=== PATIENT | female | born 1980 | race Caucasian/White ===

== ENCOUNTER 2016-11-14 14:04 | Emergency (ER) | payer MEDICAID ==
[2016-11-14 14:08] VITALS: BP 113/73
--- NOTE | 2016-11-14 14:21 | ED Physician Documentation ---
PD HPI HEENT - Stated complaint Stated Complaint: TOOTH PX - Chief complaint Chief Complaint: Heent - History obtained from History obtained from: Patient - History of Present Illness Timing - onset: How many days ago (2) Timing - duration: Days (2) Timing - details: Gradual onset, Still present Location: Tooth Improves: Medication Associated symptoms: Facial swelling. No: Fever, Congestion, Rhinorrhea, Headache, Cough Similar symptoms before: Diagnosis (bad tooth) Recently seen: Not recently seen - Additional information Additional information: 36-year-old female has a tooth in the left lower jaw that has been bothering her for about a week over the past 2 days it is become extremely painful and is not improved with use of ibuprofen and she is not sleeping at night. Review of Systems Constitutional: denies: Fever Eyes: denies: Decreased vision Ears: denies: Ear pain Nose: denies: Congestion Throat: reports: Dental pain / toothache. 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: None : None HEENT: None Psych: Anxiety Musculoskeletal: Fibromyalgia Derm: None - Past Surgical History Past Surgical History: Yes General: Cholecystectomy /TRANSPLANT IMMUNOLOGIST: Dilation and currettage - Present Medications Home Medications: Ambulatory Orders Medication Instructions Recorded Confirmed Amoxicillin 500 mg PO TID #21 capsule 11/14/16 HYDROcod/ACETAM 5/325 [[place] 5/325] 1 - 2 ea PO Q6H PRN #15 tablet 11/14/16 - Allergies Allergies/Adverse Reactions: Allergies Allergy/AdvReac Type Severity Reaction Status Date / Time codeine AdvReac Respiratory Verified 08/17/15 14:00 - Social History Does the pt smoke?: Yes Smoking Status: Current every day smoker Does the pt drink ETOH?: No Does the pt have substance abuse?: Yes - Immunizations Immunizations are current?: Yes PD ED PE NORMAL - Vitals Vital signs reviewed: Yes (normal ) - General General: No acute distress, Well developed/nourished - HEENT HEENT: Atraumatic, PERRL, EOMI, Other (#21 shows interdental decay and the tooth is tender to palpation and there is no gum swelling. There is tenderness along the mandible ) - Neck Neck: Supple, no meningeal sign, No bony TTP - Cardiac Cardiac: RRR, No murmur - Respiratory Respiratory: No respiratory distress, Clear bilaterally - Derm Derm: Normal color, Warm and dry, No rash - Extremities Extremities: No deformity, No edema - Neuro Neuro: Alert and oriented X 3, creative technologist 2-12 intact, No motor deficit, No sensory deficit, Normal speech - Psych Psych: Normal mood, Normal affect PD ED PE EXPANDED - HEENT HEENT Visual: 1 - deformity, tenderness Results - Vitals Vitals: Vital Signs - 24 hr 11/14/16 14:07 Temperature 36.6 C Heart Rate 82 Respiratory 16 Rate Blood Pressure 113/73 O2 Saturation 100 Oxygen O2 Source Room air PD MEDICAL DECISION MAKING - ED course Complexity details: considered differential, d/w patient ED course: 36 y/o female with a bad tooth is placed on amoxil and we will give her a limited supply of some pain medication. Departure - Departure Disposition: 01 Home, Self Care Clinical Impression: Dental infection Condition: Stable Instructions: ED Tooth Pain Follow-Up: Miguelina Nix ARNP [Primary Care Provider] - Prescriptions: Amoxicillin 500 mg PO TID #21 capsule HYDROcod/ACETAM 5/325 [[place] 5/325] 1 - 2 ea PO Q6H PRN #15 tablet PRN Reason: Pain
== END 2016-11-14 14:34 | disposition home or self-care (01) ==
LOC: ED 14:04
DX: K04.7 Periapical abscess without sinus (principal); K02.9 Dental caries, unspecified; F17.200 Nicotine dependence, unspecified, uncomplicated
CPT/HCPCS: 99283

== ENCOUNTER 2016-12-03 10:57 | Emergency (ER) | payer MEDICAID ==
[2016-12-03 11:06] VITALS: BP 137/87
--- NOTE | 2016-12-03 12:50 | ED Physician Documentation ---
PD HPI HEENT - Stated complaint Stated Complaint: DENTAL PAIN - Chief complaint Chief Complaint: Heent - History obtained from History obtained from: Patient - History of Present Illness Timing - onset: Other (6 days of pain from a right mandibular premolar. 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 ZOOLOGICAL MUSEUM: None : None HEENT: None Psych: Anxiety Musculoskeletal: Fibromyalgia Derm: None - Past Surgical History Past Surgical History: Yes General: Cholecystectomy /CURATOR ZOOLOGICAL MUSEUM: Dilation and currettage - Present Medications Home Medications: Ambulatory Orders Medication Instructions Recorded Confirmed Amoxicillin 500 mg PO TID #30 capsule 12/03/16 HYDROcod/ACETAM 5/325 [[place] 5/325] 1 - 2 ea PO Q6H PRN #15 tablet 12/03/16 Ibuprofen [Motrin] 800 mg PO Q8H PRN #30 tablet 12/03/16 - Allergies Allergies/Adverse Reactions: Allergies Allergy/AdvReac Type Severity Reaction Status Date / Time codeine AdvReac Respiratory Verified 08/17/15 14:00 - Social History Does the pt smoke?: Yes Smoking Status: Current every day smoker Does the pt drink ETOH?: No Does the pt have substance abuse?: Yes - Immunizations Immunizations are current?: Yes PD ED PE NORMAL - Vitals Vital signs reviewed: Yes - General General: Alert and oriented X 3, No acute distress - HEENT HEENT: Other (She has a lot of fillings. There is a large filling in a right mandibular molar, and lateral to that all the enamel is gone. It is tender. There is no facial swelling, sublingual edema, or trismus.) - Neck Neck: Supple, no meningeal sign, No bony TTP - Neuro Neuro: Alert and oriented X 3, Normal speech - Psych Psych: Normal mood, Normal affect Results - Vitals Vitals: Vital Signs - 24 hr 12/03/16 11:02 Temperature 36.7 C Heart Rate 75 Respiratory 16 Rate Blood Pressure 137/87 H O2 Saturation 100 Oxygen O2 Source Room air PD MEDICAL DECISION MAKING - ED course ED course: The [place] prescription monitoring program was queried with regard to this patient. No concerning findings were found. Departure - Departure Disposition: 01 Home, Self Care Clinical Impression: Dental infection, Dental abscess Condition: Good Record reviewed to determine appropriate education?: Yes Instructions: ED Abscess Dental Prescriptions: Amoxicillin 500 mg PO TID #30 capsule Ibuprofen [Motrin] 800 mg PO Q8H PRN #30 tablet PRN Reason: PAIN &/OR FEVER HYDROcod/ACETAM 5/325 [[place] 5/325] 1 - 2 ea PO Q6H PRN #15 tablet PRN Reason: Pain Comments: It is very important that she follow-up with a dentist. When it comes to dental problems like yours, the emergency department can only offer a short- term solution to your long-term problem. A couple of low cost options for dental care include: [facility] in [place], calls [phone] for an appointment Or [facility] in [place], call [phone] for an appointment. Do not drink or drive while taking narcotic pain medication. Note that many narcotic pain relievers also contain Tylenol/acetaminophen. Please ensure that your total dose of acetaminophen from all sources does not exceed 3 g (3000 mg) per day. You may get constipated while on this medication. Take a stool softener such as Colace twice a day while you are on it. Also add an pbor-ihh-oohhhup laxative such as senna or MiraLAX on any day that you do not have a bowel movement. If you received a narcotic pain medication or sedative while in the emergency department, do not drive for the next 24 hours.
== END 2016-12-03 12:52 | disposition home or self-care (01) ==
LOC: ED 10:57
DX: K04.7 Periapical abscess without sinus (principal); F17.200 Nicotine dependence, unspecified, uncomplicated
CPT/HCPCS: 99283

== ENCOUNTER 2017-03-03 10:52 | Emergency (ER) | payer MEDICAID ==
[2017-03-03 10:56] VITALS: BP 127/72
[2017-03-03] MEDS ORDERED: DEXAMETHASONE 10 MG/ML VIAL PO STA (12:12)
[2017-03-03] MEDS ORDERED: DEXAMETHASONE 10 MG/ML VIAL ONE (12:20)
--- NOTE | 2017-03-03 12:38 | ED Physician Documentation ---
PD HPI BACK PAIN - Stated complaint Stated Complaint: LOWER BACK PX/INJ - Chief complaint Chief Complaint: Back Pain - History obtained from History obtained from: Patient - History of Present Illness Timing - onset: How many days ago (5) Timing - duration: Days (5) Timing - details: Gradual onset, Still present Location: Lower Quality: Pain, Spasm, Sharp Associated symptoms: No: Fever, Weakness, Numbness, Incontinent of urine, Unable to urinate, Hematuria, Incontinent of stool Improves with: Rest, Position, Other (heat) Worsened by: Movement Contributing factors: Twisting Similar symptoms before: Has not had sx before Recently seen: Not recently seen - Additional information Additional information: 36-year-old female was going down some stairs she missed a step and mauricio her back falling with her arms stretched out behind her and she was able to catch herself with her arms. She did not initially have back pain but later on that day she began to develop this back pain and the pain has become worse and now it is intolerable. She has a lot of stiffness in her back. Review of Systems Constitutional: denies: Fever Eyes: denies: Decreased vision Ears: denies: Ear pain Nose: denies: Congestion Throat: denies: Sore throat Cardiac: denies: Chest pain / pressure, Palpitations Respiratory: denies: Dyspnea, Cough GI: denies: Abdominal Pain, Nausea, Vomiting : denies: Dysuria, Frequency Skin: denies: Rash Musculoskeletal: reports: Back pain. 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 : None HEENT: None Psych: Anxiety Musculoskeletal: Fibromyalgia Derm: None - Past Surgical History Past Surgical History: Yes General: Cholecystectomy /ROOF PANEL HANGER: Dilation and currettage - Present Medications Home Medications: Ambulatory Orders Medication Instructions Recorded Confirmed Ibuprofen [Motrin] 800 mg PO Q8H PRN #30 tablet 12/03/16 03/03/17 HYDROcod/ACETAM 5/325 [[place] 5/325] 1 - 2 ea PO Q6H PRN #15 tablet 03/03/17 Methocarbamol [Robaxin] 1 tab PO BID 03/03/17 03/03/17 - Allergies Allergies/Adverse Reactions: Allergies Allergy/AdvReac Type Severity Reaction Status Date / Time codeine AdvReac Respiratory Verified 03/03/17 10:56 - Social History Does the pt smoke?: Yes Smoking Status: Current every day smoker Does the pt drink ETOH?: No Does the pt have substance abuse?: Yes Substance Use and Type: Marijuana - Immunizations Immunizations are current?: Yes - POLST Patient has POLST: No PD ED PE NORMAL - Vitals Vital signs reviewed: Yes (normal ) - General General: Alert and oriented X 3, No acute distress, Well developed/nourished - HEENT HEENT: Atraumatic, PERRL, EOMI - Neck Neck: Supple, no meningeal sign - Cardiac Cardiac: RRR, No murmur - Respiratory Respiratory: No respiratory distress, Clear bilaterally - Abdomen Abdomen: Soft, Non tender - Back Back: No CVA TTP, No spinal TTP, Other (There is a lidocaine patch to the lower lumbar area ) - Derm Derm: Normal color, Warm and dry, No rash - Extremities Extremities: No deformity, No edema - Neuro Neuro: No motor deficit, No sensory deficit - Psych Psych: Normal mood, Normal affect Results - Vitals Vitals: Vital Signs - 24 hr 03/03/17 10:53 Temperature 36.1 C L Heart Rate 73 Respiratory 16 Rate Blood Pressure 127/72 O2 Saturation 100 Oxygen O2 Source Room air PD MEDICAL DECISION MAKING - ED course Complexity details: reviewed old records, considered differential, d/w patient ED course: 36-year-old female with a jarring back injury has muscle spasm in her lower back and she has been using a heating pack on this and has had increased spasm and continues to have pain. Here in the emergency department the patient was given 10 mg of dexamethasone orally and we will give her a limited amount of pain medication. Departure - Departure Disposition: 01 Home, Self Care Clinical Impression: Back spasm Condition: Stable Instructions: ED Low Back Pain Injury Follow-Up: Miguelina Nix ARNP [Primary Care Provider] - Prescriptions: HYDROcod/ACETAM 5/325 [[place] 5/325] 1 - 2 ea PO Q6H PRN #15 tablet PRN Reason: Pain
== END 2017-03-03 12:48 | disposition home or self-care (01) ==
LOC: ED 10:52
DX: S39.92XA Unspecified injury of lower back, initial encounter (principal); W10.9XXA Fall (on) (from) unspecified stairs and steps, initial encounter; X50.9XXA Other and unspecified overexertion or strenuous movements or postures, initial encounter; Y92.009 Unspecified place in unspecified non-institutional (private) residence as the place of occurrence of the external cause; M54.5 Low back pain; F17.200 Nicotine dependence, unspecified, uncomplicated
CPT/HCPCS: 99283

== ENCOUNTER 2017-03-16 15:00 | Outpatient (CLI) | payer MEDICAID | END 2017-03-16 15:01 | disposition home or self-care (01) | LOC: LAB.R 15:00 | PROVIDERS: ATTEND Nurse Practitioner Family | DX: N39.0 Urinary tract infection, site not specified (principal) | CPT/HCPCS: 87086 ==

== ENCOUNTER 2017-03-17 10:51 | Outpatient (CLI) | payer MEDICAID ==
[2017-03-17 11:35] LABS: BASOPHILS # (AUTO) 0.1 10^3/uL (0.0-0.1); BASOPHILS % (AUTO) 0.6 %; EOSINOPHILS # (AUTO) 0.2 10^3/uL (0.0-0.7); EOSINOPHILS % (AUTO) 1.8 %; HCT - HEMATOCRIT 41.4 % (37.0-47.0); HGB - HEMOGLOBIN 14.1 g/dL (12.0-16.0); LYMPHOCYTES # (AUTO) 2.6 10^3/uL (1.5-3.5); LYMPHOCYTES % (AUTO) 24.3 %; MEAN CORPUSCULAR HEMOGLOBIN 32.3 pg (27.0-31.0); MEAN PLATELET VOLUME 7.8 fL (7.9-10.8); MONOCYTES # (AUTO) 0.7 10^3/uL (0.0-1.0); MONOCYTES % (AUTO) 6.5 %; NEUTROPHILS # (AUTO) 7.1 10^3/uL (1.5-6.6); NEUTROPHILS % (AUTO) 66.8 %; RED BLOOD COUNT 4.35 10^6/uL (4.20-5.40); RED CELL DISTRIBUTION WIDTH 12.5 % (12.0-15.0); UNCORRECTED WHITE BLOOD COUNT 10.6 x10^3/uL; WHITE BLOOD COUNT 10.6 x10^3/uL (4.8-10.8)
[2017-03-17 11:46] LABS: ALBUMIN/GLOBULIN RATIO 1.5 (1.0-2.2); BILIRUBIN,TOTAL 0.6 mg/dL (0.2-1.0); CALCIUM 9.3 mg/dL (8.5-10.3); CREATININE 0.7 mg/dL (0.4-1.0); POTASSIUM 3.9 mmol/L (3.5-5.0); TOTAL PROTEIN 7.9 g/dL (6.7-8.2)
== END 2017-03-17 10:52 | disposition home or self-care (01) ==
LOC: LAB 10:51
PROVIDERS: ATTEND Nurse Practitioner Family
DX: R10.13 Epigastric pain (principal)
CPT/HCPCS: 36415; 80053; 85025; 87338

== ENCOUNTER 2017-05-07 14:40 | Outpatient (CLI) | payer MEDICAID | END 2017-05-07 14:41 | disposition home or self-care (01) | LOC: LAB.R 14:40 | PROVIDERS: ATTEND Family Medicine | DX: N39.0 Urinary tract infection, site not specified (principal) | CPT/HCPCS: 87086 ==

== ENCOUNTER 2017-07-30 10:39 | Emergency (ER) | payer MEDICAID ==
[2017-07-30 12:47] LABS: BILIRUBIN,URINE NEGATIVE (NEGATIVE); GLUCOSE, URINE (UA) NEGATIVE (NEGATIVE); KETONES,URINE (UA) NEGATIVE (NEGATIVE); LEUKOCYTE ESTERASE, URINE NEGATIVE (NEGATIVE); NITRITE,URINE NEGATIVE (NEGATIVE); OCCULT BLOOD,URINE TRACE-INTA (NEGATIVE); PH,URINE 5.5 PH (5.0-7.5); PROTEIN,URINE NEGATIVE (NEGATIVE); UROBILINOGEN,URINE 0.2 (NORMAL) E.U./dL (NORMAL)
[2017-07-30 12:50] LABS: CLARITY,URINE CLEAR (CLEAR); HCG UR QUAL NEGATIVE
[2017-07-30] MEDS ORDERED: IBUPROFEN 400 MG TABLET PO STA (14:55)
[2017-07-30] MEDS ORDERED: ACETAMINOPHEN 325 MG TABLET PO STA (14:55)
--- NOTE | 2017-07-30 14:57 | ED Physician Documentation ---
History of Present Illness - Stated complaint Stated Complaint: LOWER ABD PX - Chief complaint Chief Complaint: Abd Pain - Additonal information Additional information: hx from pt 37 f to ED with 4 days of severe shapr pelvic pain no fever no NVD no vag bleed or dc s/p adina no other abd surgery Review of Systems Constitutional: denies: Fever GI: reports: Abdominal Pain. denies: Nausea, Vomiting, Diarrhea : denies: Discharge, Vaginal bleeding PD PAST MEDICAL HISTORY - Past Medical History Cardiovascular: None Respiratory: None Neuro: None Endocrine/Autoimmune: None GI: None MARINA PORTER: None : None HEENT: None Psych: Anxiety Musculoskeletal: Fibromyalgia Derm: None - Past Surgical History Past Surgical History: Yes General: Cholecystectomy /MARINA PORTER: Dilation and currettage - Present Medications Home Medications: Ambulatory Orders Medication Instructions Recorded Confirmed Ibuprofen [Motrin] 400 mg PO Q6H PRN #30 tablet 07/30/17 traMADol [Ultram] 50 mg PO Q6H PRN #6 tablet 07/30/17 - Allergies Allergies/Adverse Reactions: Allergies Allergy/AdvReac Type Severity Reaction Status Date / Time codeine AdvReac Respiratory Verified 07/30/17 10:48 - Social History Does the pt smoke?: Yes Smoking Status: Current every day smoker Does the pt drink ETOH?: No Does the pt have substance abuse?: Yes - Immunizations Immunizations are current?: Yes - POLST Patient has POLST: No PD ED PE NORMAL - Vitals Vital signs reviewed: Yes - Cardiac Cardiac: RRR - Respiratory Respiratory: No respiratory distress, Clear bilaterally - Abdomen Abdomen: Soft, Other (TTP very low abd , no mcburney pt pain) - Female 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), Other (small yellow thick dc, slight CMT, no beleeding, cx sent, no lesions) - Derm Derm: Normal color - Neuro Neuro: Alert and oriented X 3 Results - Vitals Vitals: Vital Signs - 24 hr 07/30/17 07/30/17 07/30/17 10:45 12:53 16:52 Temperature 37.0 C 37 C Heart Rate 73 63 86 Respiratory 16 16 16 Rate Blood Pressure 114/64 119/76 112/72 O2 Saturation 99 100 97 Oxygen O2 Source Room air - Labs Labs: Microbiology 07/30/17 15:24 Wet Prep - Final Genital - Vaginal Laboratory Tests 07/30/17 10:55 Urine Color YELLOW Urine Clarity CLEAR Urine pH 5.5 Ur Specific [place] 1.025 Urine Protein NEGATIVE Urine Glucose (UA) NEGATIVE Urine Ketones NEGATIVE Urine Occult Blood TRACE-INTA Urine Nitrite NEGATIVE Urine Bilirubin NEGATIVE Urine Urobilinogen 0.2 (NORMAL) Ur Leukocyte Esterase NEGATIVE Ur Microscopic Review NOT INDICATED Urine Culture Comments NOT INDICATED Urine HCG, Qual NEGATIVE - Rads (name of study) pelvic sono Radiology: See rad report (4 cm simple ovarian cyst, no FF or torsion) PD MEDICAL DECISION MAKING - ED course ED course: cervicitis on exam tx with rocephin and zmax cx pending and cyst on sono exam does not suggest appendicitis - lower and more midline Departure - Departure Disposition: 01 Home, Self Care Clinical Impression: Cervicitis Ovarian cyst Qualifiers: Laterality: right Qualified Code(s): N83.201 - Unspecified ovarian cyst, right side Condition: Good Instructions: ED Cyst Ovarian, ED VD Cervicitis Treated Follow-Up: Miguelina Nix ARNP [Primary Care Provider] - Stefany Grider DO [Provider Admit Priv/Credential] - Prescriptions: Ibuprofen [Motrin] 400 mg PO Q6H PRN #30 tablet PRN Reason: Pain traMADol [Ultram] 50 mg PO Q6H PRN #6 tablet PRN Reason: Severe Pain Comments: Your exam does not suggest appendicitis - the pain is lower and more in the middle than where your appendix should be. The pelvic exam suggests part of the pain might be a pelvic infection - cultures are pending but we have treated you with antibiotics already And the ultrasound showed a very large right ovarian cyst - it has not ruptured yet and has not compromised the blood flow to the ovary. Recommend motrin for mild to moderate pain and tramadol if needed for severe pain only (no driving as it may be sedating) Follow up with your PMD or MARINA PORTER for a recheck Return to the ER if worse
[2017-07-30] MEDS ORDERED: oxyCOD/ACETAMIN 5 MG/325 MG TABLET PO STA (16:09)
[2017-07-30] MEDS ORDERED: LIDOCAINE 1% 2 ML VIAL SUBQ ONE (16:23)
[2017-07-30] MEDS ORDERED: cefTRIAXone 250 MG VIAL IM STA (16:23)
[2017-07-30] MEDS ORDERED: AZITHROMYCIN 250 MG TABLET PO STA (16:24)
--- NOTE | 2017-07-30 17:12 | Ultrasound Report ---
PELVIS ULTRASOUND TRANSABDOMINAL AND TRANSVAGINAL: 07/30/2017 COMPARISON: None. INDICATION: Pelvic pain. TECHNIQUE: Sonographic evaluation of the pelvis was performed using transabdominal and endovaginal technique. FINDINGS: The uterus is retroverted. It has a normal appearance without masses. The cervix is grossly unremarkable. The endometrial stripe measures 4 mm. There is a 4.0 cm simple appearing right ovarian cyst. The ovaries have an otherwise normal appearance with normal appearing blood flow. There is no free fluid. IMPRESSION: SIMPLE APPEARING RIGHT OVARIAN CYST. OTHERWISE, NEGATIVE PELVIS ULTRASOUND. TD: 07/30/2017 17:10 [facility]
[2017-07-30 17:21] VITALS: BP 115/57
== END 2017-07-30 17:30 | disposition home or self-care (01) ==
LOC: ED 10:39
DX: N72 Inflammatory disease of cervix uteri (principal); N83.201 Unspecified ovarian cyst, right side; F17.200 Nicotine dependence, unspecified, uncomplicated
CPT/HCPCS: 76830; 76856; 81003; 81025; 87210; 87491; 87591; 93975; 96372; 99283; A9270; 81001; 87086

== ENCOUNTER 2017-08-19 19:42 | Emergency (ER) | payer MEDICAID ==
[2017-08-19 19:49] VITALS: BP 141/72
[2017-08-19 20:22] LABS: BILIRUBIN,URINE NEGATIVE (NEGATIVE); GLUCOSE, URINE (UA) NEGATIVE (NEGATIVE); KETONES,URINE (UA) NEGATIVE (NEGATIVE); LEUKOCYTE ESTERASE, URINE NEGATIVE (NEGATIVE); NITRITE,URINE NEGATIVE (NEGATIVE); OCCULT BLOOD,URINE TRACE-INTA (NEGATIVE); PROTEIN,URINE NEGATIVE (NEGATIVE); UROBILINOGEN,URINE 0.2 (NORMAL) E.U./dL (NORMAL)
[2017-08-19] MEDS ORDERED: HYDROcod/ACET 5/325 Prepack 4 PO STA (20:26)
[2017-08-19 20:27] LABS: CLARITY,URINE CLEAR (CLEAR); HCG UR QUAL NEGATIVE
--- NOTE | 2017-08-19 20:30 | ED Physician Documentation ---
PD HPI ABD PAIN - Stated complaint Stated Complaint: FEMALE - Chief complaint Chief Complaint: Abd Pain - History obtained from History obtained from: Patient - History of Present Illness Timing - onset: Other (37-year-old woman with Nexplanon in place with recurrent ovarian cysts, had right pelvic pain similar to previous ovarian cysts starting yesterday. There is no bleeding, discharge, fever, nausea. She went to the women's clinic since her last visit here, noting last visit here she found a 4 cm right ovarian cyst. She was given hydroxyzine to help her sleep. 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 : None HEENT: None Psych: Anxiety Musculoskeletal: Fibromyalgia Derm: None Other Past Medical History: ovarian cyst - Past Surgical History Past Surgical History: Yes General: Cholecystectomy /GREEN BUILDING ENGINEER: Dilation and currettage - Present Medications Home Medications: Ambulatory Orders Medication Instructions Recorded Confirmed Ibuprofen [Motrin] 400 mg PO Q6H PRN #30 tablet 07/30/17 HYDROcod/ACETAM 5/325 [[place] 5/325] 1 - 2 ea PO Q6H PRN #15 tablet 08/19/17 - Allergies Allergies/Adverse Reactions: Allergies Allergy/AdvReac Type Severity Reaction Status Date / Time codeine AdvReac Respiratory Verified 08/19/17 19:48 - Social History Does the pt smoke?: Yes Smoking Status: Current every day smoker Does the pt drink ETOH?: No Does the pt have substance abuse?: Yes - Immunizations Immunizations are current?: Yes - POLST Patient has POLST: No PD ED PE NORMAL - Vitals Vital signs reviewed: Yes - General General: Alert and oriented X 3, No acute distress - Abdomen Abdomen: Normal bowel sounds, Soft, Non tender - Neuro Neuro: Alert and oriented X 3, Normal speech - Psych Psych: Normal mood, Normal affect Results - Vitals Vitals: Vital Signs - 24 hr 08/19/17 19:46 Temperature 36.9 C Heart Rate 91 Respiratory 16 Rate Blood Pressure 141/72 H O2 Saturation 100 Oxygen O2 Source Room air - Labs Labs: Laboratory Tests 08/19/17 20:11 Urine Color YELLOW Urine Clarity CLEAR Urine pH 6.0 Ur Specific [place] >=1.030 H Urine Protein NEGATIVE Urine Glucose (UA) NEGATIVE Urine Ketones NEGATIVE Urine Occult Blood TRACE-INTA Urine Nitrite NEGATIVE Urine Bilirubin NEGATIVE Urine Urobilinogen 0.2 (NORMAL) Ur Leukocyte Esterase NEGATIVE Ur Microscopic Review NOT INDICATED Urine HCG, Qual NEGATIVE Departure - Departure Disposition: Home, Self Care Clinical Impression: Ovarian cyst Qualifiers: Laterality: right Qualified Code(s): N83.201 - Unspecified ovarian cyst, right side Condition: Good Record reviewed to determine appropriate education?: Yes Instructions: ED Pelvic Pain [facility] Follow-Up: [facility] [Provider Group] Prescriptions: HYDROcod/ACETAM 5/325 [[place] 5/325] 1 - 2 ea PO Q6H PRN #15 tablet PRN Reason: Pain Comments: Your blood pressure was elevated today on check into the emergency department. This does not mean that you have hypertension, it is a common phenomenon to come to the emergency department and have elevated blood pressure. I recommend that you see your primary care physician within the week to have it rechecked when you are feeling better. Do not drink or drive while taking narcotic pain medication. Note that many narcotic pain relievers also contain Tylenol/acetaminophen. Please ensure that your total dose of acetaminophen from all sources does not exceed 3 g (3000 mg) per day. You may get constipated while on this medication. Take a stool softener such as Colace twice a day while you are on it. Also add an urwn-eui-ybfovmo laxative such as senna or MiraLAX on any day that you do not have a bowel movement. If you received a narcotic pain medication or sedative while in the emergency department, do not drive for the next 24 hours.
== END 2017-08-19 20:42 | disposition home or self-care (01) ==
LOC: ED 19:42
DX: N83.201 Unspecified ovarian cyst, right side (principal); M79.7 Fibromyalgia; F17.200 Nicotine dependence, unspecified, uncomplicated; R03.0 Elevated blood-pressure reading, without diagnosis of hypertension
CPT/HCPCS: 81001; 81003; 81025; 99283

== ENCOUNTER 2017-09-10 08:05 | Outpatient (CLI) | payer MEDICAID ==
--- NOTE | 2017-09-10 13:36 | Ultrasound Report ---
PELVIC ULTRASOUND: 09/10/2017 CLINICAL INDICATION: Followup ovarian cyst. TECHNIQUE: Transabdominal pelvic ultrasound performed for global evaluation. Transvaginal pelvic ultrasound performed for detailed evaluation. Real-time scanning performed and static images obtained. COMPARISON: 07/30/2017. FINDINGS: The uterus is retroverted, measuring 6.2 x 5.0 x 3.7 cm. The endometrium measures 3 mm. An IUD is seen within the endometrial canal. No focal myometrial lesion is present. The right ovarian cyst has decreased in size, now measuring 2.5 x 2.2 x 1.0 cm (previously 4.0 cm). The right ovary in toto measures 3.5 x 2.6 x 1.5 cm. The left ovary is unremarkable, measuring 2.6 x 1.8 x 1.4 cm. No free fluid is present. IMPRESSION: DECREASING SIZE OF RIGHT OVARIAN CYST. TD: 09/10/2017 13:35
== END 2017-09-10 08:06 | disposition home or self-care (01) ==
LOC: DI 08:05
PROVIDERS: ATTEND Registered Nurse
DX: N83.201 Unspecified ovarian cyst, right side (principal)
CPT/HCPCS: 76830; 76856

== ENCOUNTER 2018-01-09 13:30 | Outpatient (CLI) | payer MEDICAID ==
--- NOTE | 2018-01-09 16:48 | Ultrasound Report ---
Procedure Date: 01/09/2018 Accession Number: [id number] / [id number] Procedure: US - Pelvic w/Transvaginal CPT Code: FULL RESULT: EXAM: PELVIC ULTRASOUND EXAM DATE: 01/09/2018 02:47 PM. CLINICAL HISTORY: PELVIC PAIN, RT OV CYST. COMPARISON: 09/10/2017, 07/30/2017. TECHNIQUE: Realtime transabdominal pelvic scan performed to identify the uterus and adnexa and as an overview of other pelvic structures, followed by transvaginal scan to provide greater detail of the uterus and adnexa, with static image documentation. FINDINGS: Uterus: 7.8 x 3.5 x 5 cm, volume 71.4 cc. Anteverted position. Normal overall size and echotexture. Masses: None. Endometrium: 3.5 mm. Contains multiple calcifications. (Patient states no IUD present.) Cervix: Unremarkable. Right Ovary: 3 x 1.8 x 2.2 cm, volume 6.2 cc. Normal echotexture and blood flow. Right ovarian cyst has decreased in size currently 1.6 x 1 x 1.7 cm previously 2.5 x 2.2 x 1.0 cm. Left Ovary: 2.9 x 2.6 x 2.2 cm, volume 8.7 cc. Normal echotexture and blood flow. Free Fluid: None. Other: None. IMPRESSION: Negative pelvic ultrasound. [facility]
== END 2018-01-09 13:31 | disposition home or self-care (01) ==
LOC: DI 13:30
PROVIDERS: ATTEND Nurse Practitioner Family
DX: N83.291 Other ovarian cyst, right side (principal); R10.2 Pelvic and perineal pain
CPT/HCPCS: 76830; 76856

== ENCOUNTER 2018-01-10 13:15 | Emergency (ER) | payer MEDICAID ==
[2018-01-10 17:53] LABS: BILIRUBIN,URINE NEGATIVE (NEGATIVE); CLARITY,URINE CLOUDY (CLEAR); GLUCOSE, URINE (UA) NEGATIVE (NEGATIVE); KETONES,URINE (UA) NEGATIVE (NEGATIVE); LEUKOCYTE ESTERASE, URINE NEGATIVE (NEGATIVE); NITRITE,URINE NEGATIVE (NEGATIVE); OCCULT BLOOD,URINE NEGATIVE (NEGATIVE); PROTEIN,URINE NEGATIVE (NEGATIVE); UROBILINOGEN,URINE 0.2 (NORMAL) E.U./dL (NORMAL)
[2018-01-10 17:56] LABS: HCG UR QUAL NEGATIVE
[2018-01-10 17:59] LABS: AMORPHOUS SEDIMENT,UR Marked /LPF; BACTERIA,URINE Many /HPF (None Seen); RBC,URINE None Seen /HPF (0-5); SQUAMOUS EPITHELIAL CELL,UR MANY Squamous (<= Few)
--- NOTE | 2018-01-10 18:14 | ED Physician Documentation ---
PD HPI ABD PAIN - Stated complaint Stated Complaint: ABD PX - Chief complaint Chief Complaint: Abd Pain - History obtained from History obtained from: Patient, Family - History of Present Illness Timing - onset: How many weeks ago (2) Timing - duration: Weeks (2) Timing - details: Gradual onset, Still present, Waxing and waning Quality: Sharp, Pain Location: RLQ Improved by: Laying still Worsened by: Moving, Position, Palpation Associated symptoms: No: Fever, Nausea, Vomiting, Diarrhea, Constipation Similar symptoms before: Diagnosis (ovarian cyst) Recently seen: Clinic, Other (imaging) - Additional information Additional information: 37-year-old female with a history of right ovarian cyst has been having an issue with this cyst for about 2 weeks. She initially got some pain medication from her primary care doctor and she is now run out of this about 4 days ago and her pain is worsened over the last 2 days. She does state that the pain had nearly resolved. She has been back in to see her doctor and has had imaging done yesterday and she has not had the results of this yet and will not be able to get into see the women's clinic until 28 January. She is having continued acute pain and similar to what she has had previously she is able to eat and she is not having fever. Review of Systems Constitutional: denies: Fever Eyes: denies: Decreased vision Ears: denies: Ear pain Nose: denies: Congestion Throat: denies: Sore throat Cardiac: denies: Chest pain / pressure Respiratory: denies: Dyspnea, Cough GI: reports: Abdominal Pain. denies: Nausea, Vomiting : denies: Dysuria, Frequency Skin: denies: Rash Musculoskeletal: denies: Neck pain, Back pain, Extremity pain PD PAST MEDICAL HISTORY - Past Medical History Past Medical History: Yes Cardiovascular: None Respiratory: None Endocrine/Autoimmune: None GI: None AUTOPSY PATHOLOGIST: Ovarian cysts : None HEENT: None Psych: Anxiety Musculoskeletal: Fibromyalgia Derm: None - Past Surgical History Past Surgical History: Yes General: Cholecystectomy /AUTOPSY PATHOLOGIST: Dilation and currettage - Present Medications Home Medications: Ambulatory Orders Medication Instructions Recorded Confirmed HYDROcod/ACETAM 5/325 [[place] 5/325] 1 - 2 ea PO Q6H PRN #15 tablet 01/10/18 Methocarbamol [Robaxin] 500 mg PO ONCE 01/10/18 01/10/18 - Allergies Allergies/Adverse Reactions: Allergies Allergy/AdvReac Type Severity Reaction Status Date / Time codeine AdvReac Respiratory Verified 01/10/18 13:32 - Social History Does the pt smoke?: Yes Smoking Status: Current every day smoker Does the pt drink ETOH?: No Does the pt have substance abuse?: No Substance Use and Type: Marijuana - Immunizations Immunizations are current?: Yes - POLST Patient has POLST: No PD ED PE NORMAL - Vitals Vital signs reviewed: Yes (normal ) - General General: Alert and oriented X 3, No acute distress, Well developed/nourished - HEENT HEENT: Atraumatic, PERRL, EOMI - Neck Neck: Supple, no meningeal sign - Cardiac Cardiac: RRR, No murmur - Respiratory Respiratory: No respiratory distress, Clear bilaterally - Abdomen Abdomen: Soft, Other (RLQ tenderness is mild no garding or rebound ) - Back Back: No CVA TTP, No spinal TTP - Derm Derm: Normal color, Warm and dry, No rash - Extremities Extremities: No deformity, No edema - Neuro Neuro: Alert and oriented X 3, 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, No motor deficit, No sensory deficit, Normal speech Eye Opening: Spontaneous Motor: Obeys Commands Verbal: Oriented GCS Score: 15 - Psych Psych: Normal mood, Normal affect Results - Vitals Vitals: Vital Signs - 24 hr 01/10/18 01/10/18 13:29 16:14 Temperature 36.4 C L 36.4 C L Heart Rate 74 78 Respiratory 16 16 Rate Blood Pressure 112/78 109/73 O2 Saturation 100 100 Oxygen O2 Source Room air - Labs Labs: Laboratory Tests 01/10/18 17:45 Urine Color YELLOW Urine Clarity CLOUDY Urine pH 8.0 H Ur Specific [place] 1.015 Urine Protein NEGATIVE Urine Glucose (UA) NEGATIVE Urine Ketones NEGATIVE Urine Occult Blood NEGATIVE Urine Nitrite NEGATIVE Urine Bilirubin NEGATIVE Urine Urobilinogen 0.2 (NORMAL) Ur Leukocyte Esterase NEGATIVE Urine RBC None Seen Urine WBC 4-5 Ur Squamous Epith Cells MANY Squamous H Amorphous Sediment Marked Urine Bacteria Many H Ur Microscopic Review INDICATED Urine Culture Comments NOT INDICATED Urine HCG, Qual NEGATIVE PD MEDICAL DECISION MAKING - ED course Complexity details: considered differential, d/w patient, d/w family ED course: 37-year-old female with a history of ovarian cyst appears to have pain associated with this cyst that is persistent and she has no access to pain medication. We will provide her some pain medication she has follow-up with her AUTOPSY PATHOLOGIST doctor. - Sepsis Event Vital Signs: Vital Signs - 24 hr 01/10/18 01/10/18 13:29 16:14 Temperature 36.4 C L 36.4 C L Heart Rate 74 78 Respiratory 16 16 Rate Blood Pressure 112/78 109/73 O2 Saturation 100 100 Oxygen O2 Source Room air Departure - Departure Disposition: Home, Self Care Clinical Impression: Ovarian cyst Qualifiers: Laterality: right Qualified Code(s): N83.201 - Unspecified ovarian cyst, right side Condition: Stable Instructions: ED Cyst Ovarian Follow-Up: Miguelina Nix ARNP [Primary Care Provider] - Prescriptions: HYDROcod/ACETAM 5/325 [[place] 5/325] 1 - 2 ea PO Q6H PRN #15 tablet PRN Reason: Pain
[2018-01-10 18:26] VITALS: BP 120/70
== END 2018-01-10 18:26 | disposition home or self-care (01) ==
LOC: ED 13:15
DX: N83.201 Unspecified ovarian cyst, right side (principal); F17.200 Nicotine dependence, unspecified, uncomplicated
CPT/HCPCS: 81001; 81003; 81025; 87086; 99283

== ENCOUNTER 2018-05-30 14:14 | Emergency (ER) | payer MEDICAID ==
--- NOTE | 2018-05-30 16:15 | ED Physician Documentation ---
PD HPI SKIN - Stated complaint Stated Complaint: SORES ON HEAD/HAIR LOSS - Chief complaint Chief Complaint: General - History obtained from History obtained from: Patient - History of Present Illness Timing - onset: How many months ago (2-3) Timing - details: Gradual onset Location: Scalp (She noticed some small bumps and scaliness on the back part of her scalp at the upper neck. There was a little bit then developed on the right frontal scalp just at the edge of the hairline. She states her daughter had similar lesions on the scalp and was having some mild patches of hair loss. The patient states she took her daughter to the value stream coach and they prescribed use of dandruff shampoo such as Selsun Blue and another shampoo that sounds like tar shampoo perhaps for a salicylate. However the patient is having similar lesions and then 2 or 3 days ago used a dye in her hair and has noticed a significant increase in the amount of redness and burning at the rash area and is having notable hair loss from those sites in the last couple of days. She is not having redness or hair loss in other areas just where the prior rash had been.) Quality / character: Itchy, Burning, Other (somewhat scaly, and with hair loss in the area) Associated symptoms: No: Fever, N/V/D Contributing factors: Other (Use of a hair coloring dye a few days ago which seemed to escalate the symptoms.) Similar symptoms before: Has not had sx before Recently seen: Not recently seen Review of Systems Constitutional: denies: Fever Nose: denies: Rhinorrhea / runny nose, Congestion Throat: denies: Sore throat Respiratory: denies: Cough PD PAST MEDICAL HISTORY - Past Medical History Cardiovascular: None Respiratory: None Endocrine/Autoimmune: None GI: None 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 05/30/18 - Allergies Allergies/Adverse Reactions: Allergies Allergy/AdvReac Type Severity Reaction Status Date / Time codeine AdvReac Respiratory Verified 05/30/18 14:33 - Social History Does the pt smoke?: Yes Smoking Status: Current every day smoker Does the pt drink ETOH?: No Does the pt have substance abuse?: No - Immunizations Immunizations are current?: Yes - POLST Patient has POLST: No PD ED PE NORMAL - Vitals Vital signs reviewed: Yes - General General: Alert and oriented X 3, Well developed/nourished, Other (She does seem tearful and distraught due to the abrupt hair loss and was initially wearing a hooded sweatshirt with the kline up in order to cover the appearance.) - Neck Neck: Supple, no meningeal sign, No adenopathy - Derm Derm: Normal color, Warm and dry, Other (The lower occipital scalp and the edge of the frontal scalp both have redness with some scaly skin buildup. There is hair loss at both sites demarcated to the area of redness. The rest of the scalp is without any redness nor hair loss. The rash does not extend onto the regular part of the face or forehead.) Results - Vitals Vitals: Oxygen O2 Source Room air PD MEDICAL DECISION MAKING - ED course Complexity details: considered differential (I did do some scrapings of the scales and put them into a specimen container and send it to lab. I have talked with lab about doing fungal cultures and they said either swab or skin scrapings would be appropriate. Given the appearance and location of the rash in conjunction with her daughter having a similar, I would suggest likely tinea capitis. The inflammation of the could certainly be accelerated by the irritation from the hair dye a few days ago but I do not think it was a dye reaction or allergy itself. I would treated as a fungal infection. I told her the areas of hair loss should grow back as the infection improves though it has been irritated for a while and so sometimes will lead to persistent alopecia. She could call her daughter's value stream coach and suggest to them similar treatment plan or at least to consider it.), d/w patient Departure - Departure Disposition: 01 Home, Self Care Clinical Impression: Tinea capitis Condition: Stable Record reviewed to determine appropriate education?: Yes Instructions: ED Dermatitis Ringworm Scalp Prescriptions: Terbinafine HCl [Terbinafine] 1 applic TP BID #30 cream..g. Terbinafine HCl 250 mg PO DAILY #35 tablet Comments: I think this looks like a fungal infection of the scalp with subsequent hair loss. We will treated topically with some terbinafine antifungal but it also needs to get treated orally to get at the fungus in the hair follicle root which is what is leading to the hair loss. Use the terbinafine orally as well daily for the next 5 weeks. Follow-up with your primary care for recheck in the next week or 2. You could contact your daughter's value stream coach to see if they would want to treat her as well for her scalp rash in a similar fashion. Discharge Date/Time: 05/30/18 17:12
[2018-05-30 17:11] VITALS: BP 116/75
== END 2018-05-30 17:12 | disposition home or self-care (01) ==
LOC: ED 14:14
DX: B35.0 Tinea barbae and tinea capitis (principal); F17.200 Nicotine dependence, unspecified, uncomplicated
CPT/HCPCS: 99283

== ENCOUNTER 2018-06-09 12:59 | Outpatient (CLI) | payer MEDICAID | END 2018-06-09 13:00 | disposition EMS.NT | LOC: EMS 12:59 | PROVIDERS: ATTEND Surgery | DX: M54.2 Cervicalgia (principal); L65.9 Nonscarring hair loss, unspecified ==

== ENCOUNTER 2018-06-14 13:48 | Outpatient (CLI) | payer MEDICAID ==
[2018-06-14 18:33] LABS: BASOPHILS # (AUTO) 0.1 10^3/uL (0.0-0.1); BASOPHILS % (AUTO) 0.6 %; EOSINOPHILS # (AUTO) 0.1 10^3/uL (0.0-0.7); EOSINOPHILS % (AUTO) 1.1 %; LYMPHOCYTES # (AUTO) 2.3 10^3/uL (1.5-3.5); LYMPHOCYTES % (AUTO) 22.3 %; MEAN CORPUSCULAR HEMOGLOBIN 32.6 pg (27.0-31.0); MEAN CORPUSCULAR HGB CONC 33.2 g/dL (32.0-36.0); MEAN CORPUSCULAR VOLUME 98.1 fL (81.0-99.0); MEAN PLATELET VOLUME 8.1 fL (7.9-10.8); MONOCYTES # (AUTO) 0.7 10^3/uL (0.0-1.0); NEUTROPHILS # (AUTO) 7.2 10^3/uL (1.5-6.6); PLT - PLATELET COUNT 317 10^3/uL (130-450); WHITE BLOOD COUNT 10.4 x10^3/uL (4.8-10.8)
== END 2018-06-14 13:49 | disposition home or self-care (01) ==
LOC: LAB.F 13:48
PROVIDERS: ATTEND Nurse Practitioner Family
DX: L65.9 Nonscarring hair loss, unspecified (principal)
CPT/HCPCS: 36415; 84443; 85025

== ENCOUNTER 2018-08-28 09:33 | Emergency (ER) | payer MEDICAID ==
[2018-08-28 10:02] VITALS: BP 131/80
--- NOTE | 2018-08-28 10:20 | ED Physician Documentation ---
History of Present Illness - Stated complaint Stated Complaint: SKIN IRRITATION - Chief complaint Chief Complaint: General - History obtained from History obtained from: Patient - History of Present Illness Timing: Chronic Pain level max: 5 Pain level now: 0 - Additonal information Additional information: 38-year-old female being treated for tinea capitis. States that she feels like she is improving but she has not been feeling well and occasionally wakes up with spasms in her neck in the middle the night. No fevers. No vomiting. Nothing makes it better or worse. She is also going through a divorce. 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 : None HEENT: None Psych: Anxiety Musculoskeletal: Fibromyalgia Derm: None - Past Surgical History Past Surgical History: Yes General: Cholecystectomy /LABORER CARPENTRY DOCK: Dilation and currettage - Present Medications Home Medications: Ambulatory Orders Medication Instructions Recorded Confirmed Cyclobenzaprine [Flexeril] 10 mg PO TID PRN #14 tablet 08/28/18 Griseofulvin, Microsize 08/28/18 [Griseofulvin] Griseofulvin, Microsize 250 mg PO BID 08/28/18 08/28/18 [Griseofulvin] Griseofulvin, Microsize 250 mg PO BID 08/28/18 08/28/18 [Griseofulvin] - Allergies Allergies/Adverse Reactions: Allergies Allergy/AdvReac Type Severity Reaction Status Date / Time codeine AdvReac Respiratory Verified 08/28/18 10:02 - Social History Does the pt smoke?: Yes Smoking Status: Current every day smoker Does the pt drink ETOH?: No Does the pt have substance abuse?: No - Immunizations Immunizations are current?: Yes - POLST Patient has POLST: No PD ED PE NORMAL - Vitals Vital signs reviewed: Yes - General General: Alert and oriented X 3, No acute distress, Well developed/nourished - HEENT HEENT: PERRL, Moist mucous membranes, Other (Very minimal residual scaling on the crown of the head. No significant erythema.) - Neck Neck: Supple, no meningeal sign, No bony TTP - Cardiac Cardiac: RRR, Strong equal pulses - Respiratory Respiratory: No respiratory distress, Clear bilaterally - Derm Derm: Warm and dry - Neuro Neuro: Alert and oriented X 3 - Psych Psych: Normal mood, Normal affect Results - Vitals Vitals: Vital Signs - 24 hr 08/28/18 09:40 Temperature 37 C Heart Rate 84 Respiratory 16 Rate Blood Pressure 131/80 H O2 Saturation 96 Oxygen O2 Source Room air PD MEDICAL DECISION MAKING - ED course Complexity details: considered differential, d/w patient ED course: Patient has 2 weeks of griseofulvin left and will continue this for her tinea capitis. She is having neck spasms at night, will place her on Flexeril for this. She is well-appearing, nontoxic. Afebrile. Patient counseled regarding signs and symptoms for which I believe and urgent re-evaluation would be necessary. Patient with good understanding of and agreement to plan and is comfortable going home at this time This document was made in part using voice recognition software. While efforts are made to proofread this document, sound alike and grammatical errors may occur. Departure - Departure Disposition: 01 Home, Self Care Clinical Impression: Tinea capitis, Neck muscle spasm Condition: Good Instructions: ED Spasm Neck No Injury Follow-Up: Alcira Alexander ARNP [Primary Care Provider] - Within 1 week Prescriptions: Cyclobenzaprine [Flexeril] 10 mg PO TID PRN #14 tablet PRN Reason: Spasms Comments: Continue your medication. Do not drive or operate heavy machinery while taking the flexeril. Return if you worsen. Follow-up with your doctor for further care.
== END 2018-08-28 10:25 | disposition home or self-care (01) ==
LOC: ED 09:33
DX: B35.0 Tinea barbae and tinea capitis (principal); M62.838 Other muscle spasm; F17.200 Nicotine dependence, unspecified, uncomplicated
CPT/HCPCS: 99283

== ENCOUNTER 2018-09-09 08:00 | Outpatient (CLI) | payer MEDICAID ==
[2018-09-09 17:44] LABS: ALBUMIN 4.4 g/dL (3.2-5.5); ALBUMIN/GLOBULIN RATIO 1.5 (1.0-2.2); BILIRUBIN,TOTAL 0.4 mg/dL (0.2-1.0); CALCIUM 9.6 mg/dL (8.5-10.3); CREATININE 0.8 mg/dL (0.4-1.0); TOTAL PROTEIN 7.3 g/dL (6.7-8.2)
== END 2018-09-09 23:59 | disposition home or self-care (01) ==
LOC: LAB.S 08:00
PROVIDERS: ATTEND Registered Nurse
DX: B35.0 Tinea barbae and tinea capitis (principal)
CPT/HCPCS: 36415; 80053

== ENCOUNTER 2019-07-31 15:51 | Outpatient (CLI) | payer MEDICAID | END 2019-07-31 15:52 | disposition EMS.NT | LOC: EMS 15:51 | PROVIDERS: ATTEND Surgery | DX: S81.812A Laceration without foreign body, left lower leg, initial encounter (principal); Y08.89XA Assault by other specified means, initial encounter ==

== ENCOUNTER 2019-07-31 17:34 | Emergency (ER) | payer MEDICAID ==
[2019-07-31 17:57] VITALS: BP 130/78
[2019-07-31] MEDS ORDERED: BUFFERED LIDOCAINE 10 ML SYRINGE SUBQ STA (18:24)
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
== END 2019-07-31 19:00 | disposition home or self-care (01) ==
LOC: ED 17:34
DX: S81.812A Laceration without foreign body, left lower leg, initial encounter (principal); W25.XXXA Contact with sharp glass, initial encounter; Y92.009 Unspecified place in unspecified non-institutional (private) residence as the place of occurrence of the external cause; F17.200 Nicotine dependence, unspecified, uncomplicated
CPT/HCPCS: 12002; 99282; 99283

== ENCOUNTER 2019-08-10 19:07 | Emergency (ER) | payer MEDICAID ==
[2019-08-10 19:13] VITALS: BP 164/102
[2019-08-10] MEDS ORDERED: MAG HYDROX/AL HYDROX/SIMETH 30 ML UDC PO STA (19:27)
[2019-08-10] MEDS ORDERED: LIDOCAINE VISCOUS 2% 15 ML UDC MM STA (19:27)
[2019-08-10] MEDS ORDERED: cephALEXin 250 MG CAPSULE PO STA (19:27)
--- NOTE | 2019-08-10 19:30 | ED Physician Documentation ---
PD HPI ABD PAIN - Stated complaint Stated Complaint: ABDOMINAL PAIN - Chief complaint Chief Complaint: Abd Pain - History obtained from History obtained from: Patient - History of Present Illness Timing - onset: Other (She is 10 days out from a suture repair on the right lower extremity. 6 days ago developed a bad evening with upper abdominal pain and vomiting. No more vomiting since then but she continues to have epigastric pain radiating up into the chest. She denies shortness of breath. No primary chest pain. She had a remote cholecystectomy. Her bowel movements have been normal. She is been using ibuprofen which does help briefly. She is somewhat evasive when asked her about alcohol use.) Review of Systems Constitutional: denies: Fever, Chills, Myalgias, Fatigue, Weight Loss Nose: denies: Rhinorrhea / runny nose, Congestion Cardiac: denies: Chest pain / pressure, Palpitations Respiratory: denies: Dyspnea, Cough GI: reports: Abdominal Pain, Nausea, Vomiting. denies: Diarrhea : denies: Dysuria, Frequency PD PAST MEDICAL HISTORY - Past Medical History Cardiovascular: None Respiratory: None Endocrine/Autoimmune: None GI: None COUNSEL: Ovarian cysts : None HEENT: None Psych: Anxiety Musculoskeletal: Fibromyalgia Derm: None - Past Surgical History Past Surgical History: Yes General: Cholecystectomy /COUNSEL: Dilation and currettage - Present Medications Home Medications: Ambulatory Orders Medication Instructions Recorded Confirmed Cyclobenzaprine [Flexeril] 10 mg PO TID PRN #14 tablet 08/28/18 Griseofulvin, Microsize 08/28/18 [Griseofulvin] Griseofulvin, Microsize 250 mg PO BID 08/28/18 08/28/18 [Griseofulvin] Griseofulvin, Microsize 250 mg PO BID 08/28/18 08/28/18 [Griseofulvin] Hydrocodone/Acetaminophen 1 - 2 each PO Q6H PRN #7 tablet 07/31/19 [Hydrocodon-Acetaminophen 5-325] Cephalexin [Keflex] 500 mg PO Q6H #28 capsule 08/10/19 - Allergies Allergies/Adverse Reactions: Allergies Allergy/AdvReac Type Severity Reaction Status Date / Time codeine AdvReac Respiratory Verified 07/31/19 17:56 - Social History Does the pt smoke?: Yes Smoking Status: Current every day smoker Does the pt drink ETOH?: No Does the pt have substance abuse?: No - Immunizations Immunizations are current?: Yes - POLST Patient has POLST: No PD ED PE NORMAL - Vitals Vital signs reviewed: Yes - General General: Alert and oriented X 3, Other (She is histrionic and crying when I come into the room but columns down quickly when I talk to her.) - HEENT HEENT: PERRL, EOMI - Neck Neck: Supple, no meningeal sign, No bony TTP - Cardiac Cardiac: RRR, No murmur - Respiratory Respiratory: No respiratory distress, Clear bilaterally - Abdomen Abdomen: Normal bowel sounds, Soft, Non tender - Back Back: No CVA TTP, No spinal TTP - Derm Derm: Normal color, Warm and dry - Extremities Extremities: No edema, No calf tenderness / cord, Other (The upper suture line on the left leg looks fine, the lower one has very mild surrounding cellulitis without drainage.) - Neuro Neuro: Alert and oriented X 3, Normal speech Results - Vitals Vitals: Vital Signs - 24 hr 08/10/19 19:09 Temperature 36.3 C L Heart Rate 113 H Respiratory 20 Rate Blood Pressure 164/102 H O2 Saturation 100 Oxygen O2 Source Room air - Labs Labs: Laboratory Tests 08/10/19 08/10/19 08/10/19 19:30 19:30 19:35 WBC 11.1 H RBC 3.74 L Hgb 12.1 Hct 36.5 L MCV 97.6 MCH 32.4 H MCHC 33.2 RDW 12.8 Plt Count 303 MPV 9.2 Neut # (Auto) 6.9 H Lymph # (Auto) 3.0 Dauphin # (Auto) 0.9 Eos # (Auto) 0.2 Baso # (Auto) 0.1 Absolute Nucleated RBC 0.00 Nucleated RBC % 0.0 Sodium 138 Potassium 3.5 Chloride 108 Carbon Dioxide 18 L Anion Gap 12.0 BUN 15 Creatinine 0.7 Estimated GFR (MDRD) 94 Glucose 105 H Calcium 8.3 L Total Bilirubin 0.6 AST 25 ALT 14 Alkaline Phosphatase 79 Total Protein 7.1 Albumin 4.1 Globulin 3.0 Albumin/Globulin Ratio 1.4 Lipase 182 H Urine Color YELLOW Urine Clarity CLEAR Urine pH 6.0 Ur Specific Sandwich 1.015 Urine Protein TRACE Urine Glucose (UA) NEGATIVE Urine Ketones NEGATIVE Urine Occult Blood MODERATE H Urine Nitrite NEGATIVE Urine Bilirubin NEGATIVE Urine Urobilinogen 0.2 (NORMAL) Ur Leukocyte Esterase NEGATIVE Urine RBC 6-10 H Urine WBC 6-10 H Ur Squamous Epith Cells MANY Squamous H Urine Bacteria Many H Ur Microscopic Review INDICATED Urine Culture Comments NOT INDICATED Urine HCG, Qual NEGATIVE Urine Opiates Screen Ur Oxycodone Screen Urine Methadone Screen Ur Propoxyphene Screen Ur Barbiturates Screen Ur Tricyclics Screen Ur Phencyclidine Scrn Ur Amphetamine Screen U Methamphetamines Scrn U Benzodiazepines Scrn Urine Cocaine Screen U Cannabinoids Screen Ethyl Alcohol 160.4 08/10/19 19:35 WBC RBC Hgb Hct MCV MCH MCHC RDW Plt Count MPV Neut # (Auto) Lymph # (Auto) Dauphin # (Auto) Eos # (Auto) Baso # (Auto) Absolute Nucleated RBC Nucleated RBC % Sodium Potassium Chloride Carbon Dioxide Anion Gap BUN Creatinine Estimated GFR (MDRD) Glucose Calcium Total Bilirubin AST ALT Alkaline Phosphatase Total Protein Albumin Globulin Albumin/Globulin Ratio Lipase Urine Color Urine Clarity Urine pH Ur Specific Sand[place] Urine Protein Urine Glucose (UA) Urine Ketones Urine Occult Blood Urine Nitrite Urine Bilirubin Urine Urobilinogen Ur Leukocyte Esterase Urine RBC Urine WBC Ur Squamous Epith Cells Urine Bacteria Ur Microscopic Review Urine Culture Comments Urine HCG, Qual Urine Opiates Screen NEGATIVE Ur Oxycodone Screen NEGATIVE Urine Methadone Screen NEGATIVE Ur Propoxyphene Screen NEGATIVE Ur Barbiturates Screen NEGATIVE Ur Tricyclics Screen NEGATIVE Ur Phencyclidine Scrn NEGATIVE Ur Amphetamine Screen NEGATIVE U Methamphetamines Scrn NEGATIVE U Benzodiazepines Scrn NEGATIVE Urine Cocaine Screen NEGATIVE U Cannabinoids Screen POSITIVE H Ethyl Alcohol PD MEDICAL DECISION MAKING - ED course ED course: 39-year-old woman with upper abdominal pain most reminiscent of gastritis. She was administered a GI cocktail and labs were checked. Exam was benign. She had a very labile mood and smelled of alcohol this was corroborated by her labs. She eloped out of the department without formal AMA or further treatment. She did not receive the prescription for antibiotics. Subsequent to that her lab work-up demonstrated a mild case of probably alcoholic pancreatitis and alcohol intoxication. Thankfully I had already asked her and she had confirmed that she is not driving tonight. I tried to call her to go over her labs and further treatment but there was no answer. Departure - Departure Disposition: ED Elope Clinical Impression: Left leg cellulitis, Abdominal pain, Alcohol intoxication Condition: Stable Record reviewed to determine appropriate education?: Yes Instructions: Cellulitis Dc Prescriptions: Cephalexin [Keflex] 500 mg PO Q6H #28 capsule Comments: Return if the redness of the leg worsens, the antibiotic should help with that though. It still seems a little early to take the sutures out especially given the location over the farias. Discharge Date/Time: 08/10/19 19:50
[2019-08-10 19:36] LABS: BASOPHILS # (AUTO) 0.1 10^3/uL (0.0-0.1); BASOPHILS % (AUTO) 0.5 %; EOSINOPHILS # (AUTO) 0.2 10^3/uL (0.0-0.7); HGB - HEMOGLOBIN 12.1 g/dL (12.0-16.0); LYMPHOCYTES % (AUTO) 27.3 %; MEAN CORPUSCULAR HEMOGLOBIN 32.4 pg (27.0-31.0); MEAN CORPUSCULAR HGB CONC 33.2 g/dL (32.0-36.0); MEAN CORPUSCULAR VOLUME 97.6 fL (81.0-99.0); MEAN PLATELET VOLUME 9.2 fL (7.9-10.8); MONOCYTES # (AUTO) 0.9 10^3/uL (0.0-1.0); MONOCYTES % (AUTO) 7.7 %; NEUTROPHILS # (AUTO) 6.9 10^3/uL (1.5-6.6); PLT - PLATELET COUNT 303 10^3/uL (130-450); RED BLOOD COUNT 3.74 10^6/uL (4.20-5.40); RED CELL DISTRIBUTION WIDTH 12.8 % (12.0-15.0); WHITE BLOOD COUNT 11.1 x10^3/uL (4.8-10.8)
[2019-08-10 19:47] LABS: BILIRUBIN,URINE NEGATIVE (NEGATIVE); GLUCOSE, URINE (UA) NEGATIVE (NEGATIVE); KETONES,URINE (UA) NEGATIVE (NEGATIVE); LEUKOCYTE ESTERASE, URINE NEGATIVE (NEGATIVE); NITRITE,URINE NEGATIVE (NEGATIVE); OCCULT BLOOD,URINE MODERATE (NEGATIVE); PROTEIN,URINE TRACE mg/dL (NEGATIVE); UROBILINOGEN,URINE 0.2 (NORMAL) E.U./dL (NORMAL)
[2019-08-10 19:50] LABS: MUDS CUTOFF CONCENTRATIONS CUTOFF CONC BELOW:
[2019-08-10 19:51] LABS: ALBUMIN 4.1 g/dL (3.2-5.5); ALBUMIN/GLOBULIN RATIO 1.4 (1.0-2.2); BILIRUBIN,TOTAL 0.6 mg/dL (0.2-1.0); CALCIUM 8.3 mg/dL (8.5-10.3); CREATININE 0.7 mg/dL (0.4-1.0); TOTAL PROTEIN 7.1 g/dL (6.7-8.2)
[2019-08-10 19:51] LABS: CLARITY,URINE CLEAR (CLEAR); HCG UR QUAL NEGATIVE
[2019-08-10 19:54] LABS: BACTERIA,URINE Many /HPF (None Seen); SQUAMOUS EPITHELIAL CELL,UR MANY Squamous (<= Few)
[2019-08-10 20:02] LABS: AMPHETAMINE SCREEN,URINE NEGATIVE (NEGATIVE); BENZODIAZEPINES SCREEN, URINE NEGATIVE (NEGATIVE); COCAINE SCREEN URINE NEGATIVE (NEGATIVE); METHADONE SCREEN, URINE NEGATIVE (NEGATIVE); METHAMPHETAMINES SCREEN, URINE NEGATIVE (NEGATIVE); OPIATE SCREEN, URINE NEGATIVE (NEGATIVE); OXYCODONE SCREEN, URINE NEGATIVE (NEGATIVE); PROPOXYPHENE SCREEN, URINE NEGATIVE (NEGATIVE); TRICYCLIC ANTIDEPRESSANT,URINE NEGATIVE (NEGATIVE)
== END 2019-08-10 19:50 | disposition left against medical advice (07) ==
LOC: ED 19:07
DX: R10.9 Unspecified abdominal pain (principal); L03.116 Cellulitis of left lower limb; F10.129 Alcohol abuse with intoxication, unspecified; F17.200 Nicotine dependence, unspecified, uncomplicated; Z53.20 Procedure and treatment not carried out because of patient's decision for unspecified reasons
CPT/HCPCS: 36415; 80053; 80306; 80320; 81001; 81025; 83690; 85025; 99283; 99284; A9270; 81003; 87086

== ENCOUNTER 2020-05-04 12:57 | Outpatient (CLI) | payer MEDICAID | END 2020-05-04 12:58 | disposition home or self-care (01) | LOC: COV 12:57 | PROVIDERS: ATTEND Family Medicine | DX: Z20.828 Contact with and (suspected) exposure to other viral communicable diseases (principal) ==

== ENCOUNTER 2020-11-11 07:00 | Outpatient (CLI) | payer MEDICAID | END 2020-11-11 23:59 | disposition home or self-care (01) | LOC: COV 07:00 | PROVIDERS: ATTEND Family Medicine | DX: R05 Cough (principal); M79.10 Myalgia, unspecified site; R68.83 Chills (without fever); R07.0 Pain in throat; R43.8 Other disturbances of smell and taste; Z20.822 Contact with and (suspected) exposure to COVID-19 ==

== ENCOUNTER 2021-06-20 08:00 | Outpatient (CLI) | payer MEDICAID ==
--- NOTE | 2021-06-20 16:32 | XRAY Report ---
PROCEDURE: Forearm LT INDICATIONS: LEFT ARM PAIN TECHNIQUE: 2 views of the forearm were acquired. COMPARISON: None FINDINGS: Bones: There is a mildly displaced fracture of the distal third of the ulna. No suspicious bony lesi ons. Soft tissues: No suspicious soft tissue calcifications or masses. IMPRESSION: Mildly displaced fracture of the distal third of the ulna. Reviewed by: Danny Garcia on 06/20/2021 4:30 PM [facility] Approved by: Danny Garcia on 06/20/2021 4:30 PM [facility] Station ID: [id number]
--- NOTE | 2021-06-20 16:36 | XRAY Report ---
PROCEDURE: Elbow 2 View LT INDICATIONS: PAIN IN LEFT ARM TECHNIQUE: 2 views of the elbow were acquired. COMPARISON: None FINDINGS: Bones: No visible fractures or dislocations. No suspicious bony lesions. Soft tissues: No elbow joint effusion. No suspicious soft tissue calcifications. IMPRESSION: No visible fractures on this 2 view study of the left elbow. Reviewed by: Margarita Harvey MD on 06/20/2021 4:34 PM PST Approved by: Margarita Harvey MD on 06/20/2021 4:34 PM PST Station ID: [id number]
--- NOTE | 2021-06-20 16:52 | XRAY Report ---
PROCEDURE: Wrist 3 View LT INDICATIONS: PAIN IN LEFT ARM TECHNIQUE: 3 views of the wrist were acquired. COMPARISON: None FINDINGS: Bones: Incompletely visualized mildly displaced fracture of the distal ulna. No suspicious bony lesio ns. Scaphoid view: Not requested Soft tissues: No suspicious soft tissue calcifications. IMPRESSION: Incompletely visualized distal ulnar fracture. Reviewed by: Liset Duncan MD on 06/20/2021 4:51 PM PST Approved by: Liset Duncan MD on 06/20/2021 4:51 PM PST Station ID: [id number]
== END 2021-06-20 23:59 | disposition home or self-care (01) ==
LOC: DI.S 08:00
PROVIDERS: ATTEND Registered Nurse
DX: M79.602 Pain in left arm (principal); S52.602A Unspecified fracture of lower end of left ulna, initial encounter for closed fracture

== ENCOUNTER 2021-06-27 07:47 | Outpatient (CLI) | payer MEDICAID | END 2021-06-27 07:48 | disposition home or self-care (01) | LOC: DI.WOS 07:47 | PROVIDERS: ATTEND Orthopaedic Surgery | DX: Z53.9 Procedure and treatment not carried out, unspecified reason (principal) ==

== ENCOUNTER 2022-03-22 08:00 | Outpatient (CLI) | payer MEDICAID ==
[2022-03-22 13:57] LABS: BASOPHILS % (AUTO) 0.4 %; EOSINOPHILS # (AUTO) 0.7 10^3/uL (0.0-0.7); EOSINOPHILS % (AUTO) 7.2 %; HGB - HEMOGLOBIN 13.7 g/dL (12.0-16.0); LYMPHOCYTES # (AUTO) 2.3 10^3/uL (1.5-3.5); LYMPHOCYTES % (AUTO) 24.9 %; MEAN CORPUSCULAR HEMOGLOBIN 30.3 pg (27.0-31.0); MEAN CORPUSCULAR HGB CONC 32.6 g/dL (32.0-36.0); MEAN CORPUSCULAR VOLUME 92.9 fL (81.0-99.0); MEAN PLATELET VOLUME 9.7 fL (7.9-10.8); MONOCYTES # (AUTO) 0.5 10^3/uL (0.0-1.0); NEUTROPHILS # (AUTO) 5.6 10^3/uL (1.5-6.6); NEUTROPHILS % (AUTO) 61.3 %; PLT - PLATELET COUNT 360 10^3/uL (130-450); RED BLOOD COUNT 4.52 10^6/uL (4.20-5.40); RED CELL DISTRIBUTION WIDTH 11.9 % (12.0-15.0); WHITE BLOOD COUNT 9.1 x10^3/uL (4.8-10.8)
[2022-03-22 14:10] LABS: ALBUMIN 3.8 g/dL (3.2-5.5); ALBUMIN/GLOBULIN RATIO 1.3 (1.0-2.2); BILIRUBIN,TOTAL 0.4 mg/dL (0.2-1.0); CALCIUM 9.2 mg/dL (8.5-10.3); CREATININE 0.7 mg/dL (0.4-1.0); POTASSIUM 4.4 mmol/L (3.5-5.0); TOTAL PROTEIN 6.7 g/dL (6.7-8.2)
[2022-03-22 14:48] LABS: ESTIMATED AVERAGE GLUCOSE 114 mg/dL (70-100); HEMOGLOBIN A1c% 5.6 % (4.27-6.07)
[2022-03-22 22:59] LABS: CHLAMYDIA TRACHOMATIS DNA NEGATIVE (NEGATIVE); NEISSERIA GONORRHOEAE DNA NEGATIVE (NEGATIVE); TRICHOMONAS VAGINALIS DNA NEGATIVE (NEGATIVE)
== END 2022-03-22 23:59 | disposition home or self-care (01) ==
LOC: LAB.R 08:00
PROVIDERS: ATTEND Registered Nurse
DX: R68.89 Other general symptoms and signs (principal); A54.9 Gonococcal infection, unspecified; Z13.228 Encounter for screening for other metabolic disorders; R73.09 Other abnormal glucose; R94.6 Abnormal results of thyroid function studies
CPT/HCPCS: 80053; 83036; 84443; 85025; 87491; 87591; 87661